=== PATIENT | female | born 1980 | race Caucasian/White ===

== ENCOUNTER 2021-12-05 04:41 | Day surgery (SDC) | payer OTHER ==
[2021-12-03 14:04] VITALS: BMI 29.9
[2021-12-05 08:36] VITALS: TEMP 97.5
[2021-12-05 09:10] VITALS: BP 101/65; PULSE 76
== END 2021-12-05 09:25 | disposition home or self-care (01) ==
LOC: JASU-ENDO 04:41
PROVIDERS: ATTEND Internal Medicine Gastroenterology
PROC: 0DBP8ZX Excision of Rectum, Via Natural or Artificial Opening Endoscopic, Diagnostic (ICD-10-PCS; principal; 2021-12-05 08:00)
DX: C7A.026 Malignant carcinoid tumor of the rectum (principal)
CPT/HCPCS: 81025; 88305-TC

== ENCOUNTER 2022-06-05 04:04 | Day surgery (SDC) | payer OTHER ==
[2022-06-02 09:33] VITALS: BMI 29.7
[2022-06-05 13:50] VITALS: TEMP 97.4
[2022-06-05 14:14] VITALS: BP 89/56; PULSE 75; RESP 16
== END 2022-06-05 14:17 | disposition home or self-care (01) ==
LOC: JASU-ENDO 04:04
PROVIDERS: ATTEND Internal Medicine Gastroenterology
PROC: 0DJD8ZZ Inspection of Lower Intestinal Tract, Via Natural or Artificial Opening Endoscopic (ICD-10-PCS; principal; 2022-06-05 13:30)
DX: Z85.040 Personal history of malignant carcinoid tumor of rectum (principal)
CPT/HCPCS: 81025

== ENCOUNTER 2025-06-28 15:58 | Day surgery (SDC) | payer OTHER ==
[2025-06-28] MEDS: IRON SUCROSE INJECTION 300 MG in SODIUM CHLORIDE 250 ML IVPB ONE (16:00)
[2025-06-28 16:17] VITALS: RESP 18; TEMP 98.2
[2025-06-28 18:05] VITALS: BP 115/79; PULSE 68
== END 2025-06-28 18:30 | disposition home or self-care (01) ==
LOC: JONCCHEMO 15:58 → J7W 15:59 → JONCCHEMO 18:30
PROVIDERS: ATTEND Internal Medicine Hematology & Oncology
PROC: 3E033GC Introduction of Other Therapeutic Substance into Peripheral Vein, Percutaneous Approach (ICD-10-PCS; principal; 2025-06-28)
DX: D50.0 Iron deficiency anemia secondary to blood loss (chronic) (principal)
CPT/HCPCS: 96365; J1756

== ENCOUNTER 2025-07-12 16:09 | Day surgery (SDC) | payer OTHER ==
[2025-07-12] MEDS: IRON SUCROSE INJECTION 300 MG in SODIUM CHLORIDE 250 ML IVPB ONE (16:07)
[2025-07-12 17:47] VITALS: RESP 20; TEMP 98.7
[2025-07-12 17:55] VITALS: BP 117/76; PULSE 69
== END 2025-07-12 18:14 | disposition home or self-care (01) ==
LOC: JONCNONCHE 16:09 → J7W 16:10 → JONCNONCHE 18:14
PROVIDERS: ATTEND Internal Medicine Hematology & Oncology
PROC: 3E033GC Introduction of Other Therapeutic Substance into Peripheral Vein, Percutaneous Approach (ICD-10-PCS; principal; 2025-07-12)
DX: D50.9 Iron deficiency anemia, unspecified (principal)
CPT/HCPCS: 96365; J1756